=== PATIENT | female | born 1950 | race Caucasian/White ===

== ENCOUNTER 2016-12-24 17:31 | Emergency (ER) | payer SELFPAY ==
[2016-12-24 17:51] VITALS: BP 166/85; BMI 34.3
--- NOTE | 2016-12-24 18:54 | DR.EXTPAIN ---
HPI - Time seen Time seen: 19:00 - PCP Primary Care Physician: MIKE - HPI Comment HPI Comment: PATIENT FELL ONE WEEK AGO AND CONTINUE TO HAVE RIGHT LOWER RIB PAIN. NO SOB. - Complaint/Symptoms Chief Complaint Doctor Comments: PAIN RIGHT LOWER CHEST, FALL. Chief Complaint:: PT C/O BATHING HER SON THAT HAS MD AND SHE WENT TO FALL AND CAUGHT HER SELF AND SHE HIT HER RIGHT UPPER ABD AND FLANK AND AND SHE HAS HAD PAIN OFF AND ON SINCE THAN ". Self Treatment fo Chief Complaint: THERE IS NO BRUSING OR DEFORMITY , - Nurses notes reviewed Nurses Notes Review: Yes - Source History Provided: Patient - Mode of arrival Mode of Arrival: Ambulatory - Timing Onset of Chief Complaint: 12/15/16 - Context History of: Arthritis - Associated signs and symptoms Associated Signs and Symptoms: Pain PMH - PMH Past Medical History: Yes Past Medical History: Diabetes Past Surgical History: Yes Surgical History: Hysterectomy Past Surgical History Comment: HERNIA REPAIR - Family History History of Family Medical Conditions: No - Social History Does patient currently use any type of tobacco product: Yes Have you used tobacco products in the last 12 months: Yes Type of Tobacco Use: None How many years tobacco product used: 49 Does any household member use tobacco: No Alcohol Use: None Do you use any recreational Drugs:: No Lives With: Family Lives Where: Home - infectious screening In the last 2 months have you had wt loss of >10#?: NO Have you had fever, night sweats or hemotysis?: No Have you traveled outside the country in the last 6 months?: No Isolation: Standard ROS - Review of Systems Constitutional: No Symptoms Reported Eyes: No Symptoms Reported ENTM: No Symptoms Reported Respiratoy: Short of Breath Cardiovascular: Chest Pain (RIGHT LOWER RIB.) Gastrointestinal/Abdominal: Abdominal Pain (EPIGASTRIC AREA,) Neurological: No Symptoms Reported Musculoskeletal: Chest wall, Rib(s) Integumentary: No Symptoms Reported Hematologic/Lymphatic: No Symptoms Reported Endocrine: No Symptoms Reported All Other Systems: Reviewed and Negative PE - Vital Signs Vitals: Temperature 98.4 F Pulse Rate 83 Respiratory Rate 20 Blood Pressure 166/85 O2 Sat by Pulse Oximetry 95 - General Limitations: No Limitations General Appearance: Alert - Head Head Exam: Normal Inspection - Eyes Eye exam: Normal Appearance - ENT ENT Exam: Normal External Ear Exam - Neck Neck Exam: Normal Inspection - Chest Chest Inspection: Symmetric Chest Wall Rise - Respiratory Respiratory Exam: Chest Wall Tenderness Respiratory Exam: Bilateral Clear to Auscultation - Cardiovascular Cardiovascular Exam: Regular Rate, Normal Rhythm, Irregular Rhythm - Abdominal Exam Abdominal Exam: Normal Bowel Sounds, Soft, Tenderness Abdominal Tenderness: Epigastrium - Extremities Extremities Exam: Normal Inspection - Lower Extremities Neurovascular/Tendon Exam: Normal Capillary Refill Gait Exam: Observed and Normal - Back Back Exam: Normal Inspection - Neurological Neurological Exam: Alert, Oriented X3 - Psychiatric Psychiatric Exam: Normal Affect, Normal Mood - Skin Skin Exam: Normal Color MDM - Differential Diagnosis Differential Diagnosis: Contusion, Fracture, Sprain Course - Treatment Treatment: SEE ORDERS. IM MEDS IN ED. - Reevaluation 1st: Improved (PAIN DECREASING.) - Education/Counseling Education/Counseling: Patient, Family, Education Educated On: Treatment, Diagnosis, Needs for Follow Up ROR - XRAY XRAY Interpreted by: Radiologist XRAY Findings: REPORT DISCUSS WITH PATIENT AND HER FAMILY. - Diagnosis Discharge Problem: Contusion of rib on right side Qualifiers: Encounter type: initial encounter Qualified Code(s): S20.211A - Contusion of right front wall of thorax, initial encounter Fracture, rib Qualifiers: Encounter type: initial encounter Rib fracture type: single rib Fracture type: closed Laterality: right Qualified Code(s): S22.31XA - Fracture of one rib, right side, initial encounter for closed fracture - Discharge Plan Disposition: 01 HOME, SELF-CARE Condition: Stable Prescriptions: Acetaminophen with Codeine [Tylenol/Codeine #3 300-30 mg] 1 tab PO Q8H PRN #15 tab PRN Reason: Pain Ibuprofen [MOTRIN TAB 600 MG *] 600 mg PO TID PRN #20 tab PRN Reason: Pain/Inflammation - Follow ups/Referrals Follow ups/Referrals: NFD,None [Primary Care Provider] - 3 days - Instructions Instructions: Rib Fracture, Rib Contusion Additional Instructions: RETURN TO ED IF WORSE.
[2016-12-24] MEDS ORDERED: TORADOL 60 MG VIAL IM ONE (19:17)
[2016-12-24] MEDS ORDERED: NORFLEX INJ IM ONE (19:17)
[2016-12-24] MEDS ORDERED: NORFLEX INJ ONE (19:20)
[2016-12-24] MEDS ORDERED: TORADOL 60 MG VIAL ONE (19:20)
--- NOTE | 2016-12-24 21:04 | RAD ---
HISTORY: Status post fall a week and a half ago. Study: Three views of the ribs. Comparison: None. Findings: The trachea is midline. The cardiac silhouette is unremarkable. No obvious focal consolidation, ple ural effusion, or pneumothorax. Remote vertebroplasty at L2. Multiple remote appearing thoracic verte bral body fractures. Multiple cortical irregularities of the right lateral 7th through 9th ribs. Thes e may represent nondisplaced fractures. Remaining osseous structures appear intact. IMPRESSION: 1. No acute cardiopulmonary disease. 2. Question of nondisplaced right lateral 7th through 9th ribs. Reported By:
== END 2016-12-24 21:19 | disposition home or self-care (01) ==
LOC: ER 18:15
DX: S22.31XA Fracture of one rib, right side, initial encounter for closed fracture (principal); S20.211A Contusion of right front wall of thorax, initial encounter; W19.XXXA Unspecified fall, initial encounter; Y92.9 Unspecified place or not applicable
CPT/HCPCS: 71111; 96372; 99282; 99283; J1885; J2360

== ENCOUNTER 2017-05-01 22:39 | Emergency (ER) | payer OTHER, MEDICAID ==
[2017-05-01 22:45] VITALS: BP 130/76; BMI 33.2
--- NOTE | 2017-05-01 23:37 | DR.GENAD ---
HPI - PCP Primary Care Physician: ANA - Complaint/Symptoms Chief Complaint Doctors Comments: Patient states that she cut her left hand with a knife accidentally tonight Chief Complaint:: LACERATION TO LEFT HAND Self Treatment fo Chief Complaint: NONE - Source History Provided: Patient - Mode of Arrival Mode of Arrival: Ambulatory - Timing Onset of Chief Complaint: 05/01/17 PMH - PMH Past Medical History: Yes Past Medical History: Diabetes Past Surgical History: Yes Surgical History: Hysterectomy - Family History History of Family Medical Conditions: No - Social History Does patient currently use any type of tobacco product: Yes Have you used tobacco products in the last 12 months: Yes Type of Tobacco Use: Cigarettes Does any household member use tobacco: Yes Alcohol Use: None Do you use any recreational Drugs:: No Lives With: Family Lives Where: Home - infectious screening In the last 2 months have you had wt loss of >10#?: NO Have you had fever, night sweats or hemotysis?: No Have you traveled outside the country in the last 6 months?: No Isolation: Standard ROS - Review of Systems Constitutional: No Symptoms Reported Eyes: No Symptoms Reported ENTM: No Symptoms Reported Respiratoy: No Symptoms Reported Cardiovascular: No Symptoms Reported Gastrointestinal/Abdominal: No Symptoms Reported Genitourinary: No Symptoms Reported Neurological: No Symptoms Reported Musculoskeletal: Other (incision between digits 1&2 of left hand) Integumentary: Wound (5mm laceration between digis 1&2) Hematologic/Lymphatic: No Symptoms Reported Endocrine: No Symptoms Reported Psychiatric: No Symptoms Reported All Other Systems: Reviewed and Negative PE - Vital Signs Vitals: Temperature 98.7 F Pulse Rate 89 Respiratory Rate 16 Blood Pressure 130/76 O2 Sat by Pulse Oximetry 96 - General Limitations: No Limitations General Appearance: Alert, In No Apparent Distress - Head Head Exam: Normal Inspection, Atraumatic - Eyes Eye exam: Normal Appearance, PERRL, EOMI - ENT ENT Exam: Normal Exam External Ear Exam: Normal External Inspection TM/Canal Exam: Bilateral Normal Nose Exam: Normal Nose Exam Mouth Exam: Normal Inspection Throat Exam: Normal Inspection - Neck Neck Exam: Normal Inspection, Full ROM - Chest Chest Inspection: Normal Inspection - Respiratory Respiratory Exam: Normal Lung Sounds Bilat Respiratory Exam: Bilateral Clear to Auscultation - Cardiovascular Cardiovascular Exam: Regular Rate - Abdominal Exam Abdominal Exam: Normal Inspection, Normal Bowel Sounds Abdominal Tenderness: negative: RUQ, RLQ, LUQ, LLQ, Epigastrium, Suprapubic, Diffuse, Mild, Moderate, Severe, Other - Extremities Extremities Exam: Other (5mm suferficial laceration between digits 1&2) - Back Back Exam: Normal Inspection - Neurologic Neurological Exam: Alert, Oriented X3, CN II-XII Intact - Psychiatric Psychiatric Exam: Normal Affect, Normal Mood - Skin Skin Exam: Warm, Dry, Intact (5mm superficial laceration between digist 1$2) Procedures - Laceration/Wound Repair Left Hand Wound's Depth, Shape: Superficial, Irregular Wound Explored: clean Betadine Prep?: Yes Wound Repaired With: Dermabond - Diagnosis Discharge Problem: Superficial laceration of left hand Qualifiers: Encounter type: initial encounter Qualified Code(s): S61.412A - Laceration without foreign body of left hand, initial encounter - Discharge Plan Condition: Stable - Follow ups/Referrals Follow ups/Referrals: KAMAR PEREZ [Primary Care Provider] - 3 days - Instructions
== END 2017-05-01 23:41 | disposition home or self-care (01) ==
LOC: ER 22:49
PROC: 0XQKXZZ Repair Left Hand, External Approach (ICD-10-PCS; principal; 2017-05-01)
DX: S61.412A Laceration without foreign body of left hand, initial encounter (principal); W26.0XXA Contact with knife, initial encounter; Y92.9 Unspecified place or not applicable
CPT/HCPCS: 12001; 99282